=== PATIENT | male | born 1975 | race Two or more races ===

== ENCOUNTER 2016-12-30 20:21 | Inpatient (IN) | payer OTHER ==
[2016-12-30 20:42] LABS: VENOUS BASE EXCESS -1.5 (-2.0-2.0); VENOUS O2 SATURATION 82.1 % (60.0-80.0); VENOUS PARTIAL PRESSURE CO2 43.5 mmHg (38.0-50.0); VENOUS PARTIAL PRESSURE O2 50.4 mmHg (30.0-50.0); VENOUS STANDARD HCO3 22.9 MEQ/L; VENOUS TOTAL CO2 25.4 MEQ/L (24.0-28.0)
[2016-12-30] MEDS ORDERED: NS 1,000 ML IV ONE (20:45)
[2016-12-30 20:47] LABS: BASO % 0.2 % (0.0-1.0); EOS # 0.1 K/mm3 (0.0-0.50); EOS % 0.9 % (0.0-3.0); LARGE UNSTAINED CELL # 0.1 K/mm3 (0.0-0.4); LARGE UNSTAINED CELL % 0.6 % (0.0-4.0); LYMPH # 0.7 K/mm3 (1.5-4.5); LYMPH % 8.1 % (24.0-44.0); MEAN CORPUSCULAR HEMOGLOBIN 31.1 pg (27.0-33.0); MEAN CORPUSCULAR HGB CONC 33.7 g/dl (32.0-36.5); MEAN CORPUSCULAR VOLUME 92.3 fl (80.0-96.0); MONO # 0.3 K/mm3 (0.0-0.8); MONO % 3.8 % (0.0-5.0); NEUTROPHILS # 7.2 K/mm3 (1.8-7.7); NEUTROPHILS % 86.3 % (36.0-66.0); PLATELET COUNT, AUTOMATED 256 k/mm3 (150-450); RED CELL DISTRIBUTION WIDTH 12.3 % (11.5-14.5); WHITE BLOOD COUNT 8.3 K/mm3 (4.0-10.0)
[2016-12-30 21:04] LABS: OSMOLALITY SERUM 306 MOSM/KG (275-295)
[2016-12-30 21:08] LABS: METHADONE URINE NEGATIVE (NEGATIVE)
[2016-12-30 21:29] LABS: ALBUMIN 4.3 GM/DL (3.2-5.2); ALBUMIN/GLOBULIN RATIO 1.19 (1.00-1.93); ALKALINE PHOSPHATASE 90 U/L (45-117); ALT/SGPT 39 U/L (12-78); ANION GAP 7 MEQ/L (8-16); AST/SGOT 52 U/L (15-37); BILIRUBIN,DIRECT 0.2 MG/DL (0.0-0.2); BILIRUBIN,TOTAL 0.9 MG/DL (0.2-1.0); BLOOD UREA NITROGEN 20 MG/DL (7-18); CALCIUM LEVEL 9.2 MG/DL (8.5-10.1); CARBON DIOXIDE LEVEL 26 MEQ/L (21-32); CHLORIDE LEVEL 107 MEQ/L (98-107); CREATININE FOR GFR 1.84 MG/DL (0.70-1.30); GLOMERULAR FILTRATION RATE 43.8 (>60); GLUCOSE, FASTING 179 MG/DL (70-105); POTASSIUM SERUM 4.3 MEQ/L (3.5-5.1); SODIUM LEVEL 140 MEQ/L (136-145); TOTAL PROTEIN 7.9 GM/DL (6.4-8.2)
[2016-12-30] MEDS ORDERED: LIDOCAINE 1% MDV 20ML VIAL As Ordered ONE (23:58)
[2016-12-31] VITALS (28 sets, daily range): BP systolic 111–161; BP diastolic 63–98
[2016-12-31] MEDS ORDERED: MIDAZOLAM HCL 50 MG in D5W 40 ML IV SCH (01:00)
[2016-12-31] MEDS ORDERED: MIDAZOLAM INJ 5 MG/ML VIAL (J2250) As Ordered ONE (01:11)
[2016-12-31] MEDS ORDERED: MIDAZOLAM INJ 5 MG/ML VIAL (J2250) IV ONE ×2 (01:15)
[2016-12-31] MEDS ORDERED: NS 1,000 ML IV ONE ×2 (02:00→09:00)
[2016-12-31] MEDS ORDERED: REFRIGERATOR IV KEYS XX PRN ×2 (02:00→04:00)
[2016-12-31] MEDS ORDERED: MIDAZOLAM HCL 100 MG in D5W 80 ML IV SCH ×2 (02:00→06:00)
[2016-12-31 02:14] LABS: ABG BASE EXCESS -2.8 (-2.0-2.0); ABG PARTIAL PRESSURE CO2 38.7 mmHg (35.0-45.0); ABG PARTIAL PRESSURE O2 147.7 mmHg (75.0-100.0); ABG STANDARD HCO3 22.1 MEQ/L (22.0-26.0); ABG TOTAL CO2 23.2 MEQ/L (22.0-29.0); ABG pH (ARTERIAL) 7.373 UNITS (7.350-7.450)
[2016-12-31] MEDS ORDERED: VECURONIUM BROMIDE 10 MG VIAL IV ONE ×2 (02:15)
[2016-12-31] MEDS ORDERED: MORPHINE 2 MG/ML 1ML SYRINGE IV PRN (04:00)
[2016-12-31] MEDS: D5W/0.9% SODIUM CHLORIDE 1,000 ML IV SCH ×3 (04:43→20:57)
[2016-12-31] MEDS ORDERED: VECURONIUM BROMIDE 50 MG in D5W 50 ML IV SCH (05:00)
[2016-12-31] MEDS: HEPARIN SOD (PORCINE) 5000 UNITS/ML VIAL SC SCH ×3 (05:27→20:55)
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
[2016-12-31] MEDS ORDERED: VECURONIUM BROMIDE 10 MG VIAL ONE (05:33)
[2016-12-31] MEDS ORDERED: ETOMIDATE INJ 20MG/10ML VIAL ONE (05:33)
[2016-12-31] MEDS ORDERED: SUCCINYLCHOLINE 100 MG/5 ML SYRINGE (J0330) ONE (05:33)
--- NOTE | 2016-12-31 07:25 | ECGEPIP ---
Stationary ECG Study [facility] - ED Test Date: 2016-12-30 Pat Name: CORRINE MARTIN Department: Room: [place] [address] Gender: M Drafter Chief Design: : 1975 Requested By: ANDIE PLEITEZ Order Number: [id number] Reading MD: Omaira Schofield Measurements Intervals [place] Rate: 105 P: 58 DC: 127 QRS: 53 QRSD: 73 T: 26 QT: 319 QTc: 422 Interpretive Statements SINUS TACHYCARDIA ABNORMAL RHYTHM ECG NSTTW ABNORMALITY NO PRIOR FOR COMPARISON Electronically Signed On 12-31-2016 7:25:02 EDT by Omaira Schofield
--- NOTE | 2016-12-31 07:25 | REP ---
Portable chest, 12/31/2016, 06/1945 a, single AP view the patient supine for ET tube placement: The tip of the endotracheal tube is at the level of the tito and I cannot determine with certainty whether it is selectively within the right or left main stem bronchi. Cardiac silhouette is shifted to the left. There is opacification of the visualized left lung compatible with left lung atelectasis. Right lung is clear. There is a nasogastric tube terminates satisfactorily in the abdominal left upper quadrant. Signed by Chidi Mg MD 12/31/2016 07:16 A
--- NOTE | 2016-12-31 07:28 | REP ---
Follow-up portable chest, 12/31/2016, 01:50 a.m., single AP view the patient supine: Comparison is a study performed 01:40 a.m. earlier today. The tito is better visualized on the current study. The endotracheal tube is just above the tito. Low. The cardiac silhouette is no longer shifted to the left in the visualized left lung field has improved with only minor atelectasis visible at this time. Right lung remains clear. Cardiac size is normal. The vladislav, mediastinum, and bony thorax are otherwise unremarkable with exception of a possible fracture along the medial cortex of the right humeral head, acute versus chronic. There are no remote comparisons. The nasogastric tube is again identified terminates satisfactorily in the abdominal left upper quadrant. Signed by Chidi Mg MD 12/31/2016 07:19 A
[2016-12-31 08:05] LABS: BASO % 0.3 % (0.0-1.0); EOS % 0.4 % (0.0-3.0); LARGE UNSTAINED CELL # 0.1 K/mm3 (0.0-0.4); LARGE UNSTAINED CELL % 2.2 % (0.0-4.0); LYMPH # 1.2 K/mm3 (1.5-4.5); LYMPH % 19.1 % (24.0-44.0); MEAN CORPUSCULAR HGB CONC 33.5 g/dl (32.0-36.5); MEAN CORPUSCULAR VOLUME 92.5 fl (80.0-96.0); MONO # 0.5 K/mm3 (0.0-0.8); MONO % 8.7 % (0.0-5.0); NEUTROPHILS # 3.8 K/mm3 (1.8-7.7); NEUTROPHILS % 69.2 % (36.0-66.0); PLATELET COUNT, AUTOMATED 202 k/mm3 (150-450); RED CELL DISTRIBUTION WIDTH 12.4 % (11.5-14.5); WHITE BLOOD COUNT 5.5 K/mm3 (4.0-10.0)
[2016-12-31] MEDS: CHLORHEXIDINE GLUCONATE 0.12 % 15ML UDC (PERIDEX ORAL RINSE) MT SCH ×2 (08:07→20:55)
[2016-12-31] MEDS: PANTOPRAZOLE 40MG INJ (PROTONIX) (C9113) IV SCH (08:07)
[2016-12-31] MEDS: IPRATROPIUM 0.5MG/ALBUTEROL 2.5MG INH SOL UD 3ML (DUONEB)(J7620) NEB SCH ×4 (08:11→19:33)
[2016-12-31 08:30] LABS: ALBUMIN 3.5 GM/DL (3.2-5.2); ALBUMIN/GLOBULIN RATIO 1.06 (1.00-1.93); ALKALINE PHOSPHATASE 67 U/L (45-117); ALT/SGPT 31 U/L (12-78); ANION GAP 9 MEQ/L (8-16); AST/SGOT 44 U/L (15-37); BILIRUBIN,DIRECT 0.2 MG/DL (0.0-0.2); BILIRUBIN,TOTAL 0.7 MG/DL (0.2-1.0); BLOOD UREA NITROGEN 15 MG/DL (7-18); CALCIUM LEVEL 8.2 MG/DL (8.5-10.1); CARBON DIOXIDE LEVEL 23 MEQ/L (21-32); CHLORIDE LEVEL 113 MEQ/L (98-107); CREATININE FOR GFR 1.23 MG/DL (0.70-1.30); GLOMERULAR FILTRATION RATE > 60.0 (>60); GLUCOSE, FASTING 120 MG/DL (70-105); PHOSPHORUS LEVEL 1.7 MG/DL (2.5-4.9); SODIUM LEVEL 145 MEQ/L (136-145); TOTAL PROTEIN 6.8 GM/DL (6.4-8.2)
[2016-12-31 08:52] LABS: ABG HCO3 22.4 MEQ/L (22.0-26.0); ABG PARTIAL PRESSURE CO2 41.2 mmHg (35.0-45.0); ABG STANDARD HCO3 21.6 MEQ/L (22.0-26.0); ABG TOTAL CO2 23.7 MEQ/L (22.0-29.0); ABG pH (ARTERIAL) 7.353 UNITS (7.350-7.450)
[2016-12-31 08:56] LABS: ABG PARTIAL PRESSURE O2 47.5 mmHg (75.0-100.0)
[2016-12-31] MEDS: MIDAZOLAM HCL 250 MG in D5W 200 ML IV SCH ×2 (11:31→23:46)
[2016-12-31] MEDS: VECURONIUM BROMIDE 50 MG in D5W 50 ML IV SCH ×2 (11:32→20:57)
--- NOTE | 2016-12-31 12:28 | REP ---
Portable chest, single AP view, the patient sitting, 12/31/2016, 12:06 p.m.: Comparison is a portable chest performed at 1:58 AM earlier today. There is a right subclavian central venous catheter with the tip superimposed over the tito. There is no pneumothorax or pleural fluid collection. Lung butler are clear. Cardiac size normal. There is an endotracheal tube with the tip in satisfactory location at the level of the aortic arch. There is a nasogastric tube with the tip in satisfactory location in the abdominal left upper quadrant. Signed by hCidi Mg MD 12/31/2016 12:20 P
--- NOTE | 2016-12-31 12:30 | REP ---
Right shoulder single AP view: Comparison study is performed at 01:58 a.m. earlier today. There is a faintly visible defect in the medial cortex of the humeral head, identified to better advantage on the comparison study, compatible with a humeral head cortical fracture. 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 Mineralization is normal. There is no dislocation. Signed by Chidi Mg MD 12/31/2016 12:22 P
--- NOTE | 2016-12-31 12:46 | RO ---
DATE OF PROCEDURE: 12/31/2016 Time of procedure: 10:10 a.m. PREOPERATIVE DIAGNOSIS: Hemodynamic monitoring, poor IV access. POSTOPERATIVE DIAGNOSIS: Hemodynamic monitoring, poor IV access. PROCEDURE: Central venous catheter placement in the right subclavian vein. ATTENDING DOCTOR: Gonzalo Baltazar DO RESIDENT DOCTOR: Emmanuelle Sainz DO ANESTHESIA: DESCRIPTION OF PROCEDURE: A time out was completed verifying the correct procedure, said procedure and special equipment that was available. The patient was faced in dependent position, appropriate for central line placement based on vein to be cannulated. The patient's right shoulder was prepped and draped in a sterile fashion. 1% lidocaine was used to anesthetize the shoulder skin area. A triple lumen catheter was introduced into the right subclavian vein, used in a Seldinger technique. The catheter was threaded smoothly over the Guidewire and appropriate blood return was obtained. Each lumen of the catheter was evaluated and flushed sterile saline. The catheter was then sutured in place to the skin and a sterile drape was applied. Perfusion to the extremity distal to the point of catheter insertion was checked and found to be adequate. Dr. Baltazar was present for the entire procedure. ESTIMATED BLOOD LOSS: Less than 10 mL. Patient tolerated the procedure well and there were no complications. Position of the Guidewire, position of the triple lumen catheter (TLC) was checked with a portable chest x-ray and was found to be in good position. [facility]
[2016-12-31] MEDS: MIDAZOLAM INJ 2 MG/2 ML VIAL (J2250) IV PRN ×3 (20:55→21:56)
[2017-01-01] VITALS (18 sets, daily range): BP systolic 111–150; BP diastolic 58–87; O2SAT 100
[2017-01-01] MEDS: HEPARIN SOD (PORCINE) 5000 UNITS/ML VIAL SC SCH ×3 (05:40→21:38)
[2017-01-01] MEDS: VECURONIUM BROMIDE 50 MG in D5W 50 ML IV SCH (05:40)
[2017-01-01 05:51] LABS: ABG BASE EXCESS -0.5 (-2.0-2.0); ABG HCO3 23.8 MEQ/L (22.0-26.0); ABG PARTIAL PRESSURE CO2 37.9 mmHg (35.0-45.0); ABG PARTIAL PRESSURE O2 113.4 mmHg (75.0-100.0); ABG TOTAL CO2 24.9 MEQ/L (22.0-29.0); ABG pH (ARTERIAL) 7.415 UNITS (7.350-7.450)
[2017-01-01 05:55] LABS: BASO % 0.1 % (0.0-1.0); EOS # 0.2 K/mm3 (0.0-0.50); EOS % 1.2 % (0.0-3.0); LARGE UNSTAINED CELL # 0.1 K/mm3 (0.0-0.4); LARGE UNSTAINED CELL % 0.5 % (0.0-4.0); LYMPH # 0.5 K/mm3 (1.5-4.5); LYMPH % 3.1 % (24.0-44.0); MEAN CORPUSCULAR HEMOGLOBIN 31.1 pg (27.0-33.0); MEAN CORPUSCULAR HGB CONC 33.5 g/dl (32.0-36.5); MEAN CORPUSCULAR VOLUME 92.8 fl (80.0-96.0); MONO # 0.4 K/mm3 (0.0-0.8); MONO % 3.1 % (0.0-5.0); NEUTROPHILS # 12.5 K/mm3 (1.8-7.7); NEUTROPHILS % 91.9 % (36.0-66.0); PLATELET COUNT, AUTOMATED 182 k/mm3 (150-450); RED CELL DISTRIBUTION WIDTH 12.5 % (11.5-14.5); WHITE BLOOD COUNT 13.6 K/mm3 (4.0-10.0)
[2017-01-01] MEDS: MIDAZOLAM INJ 2 MG/2 ML VIAL (J2250) IV PRN (05:57)
[2017-01-01 06:22] LABS: ALKALINE PHOSPHATASE 62 U/L (45-117); ALT/SGPT 25 U/L (12-78); ANION GAP 7 MEQ/L (8-16); AST/SGOT 28 U/L (15-37); BILIRUBIN,TOTAL 0.8 MG/DL (0.2-1.0); BLOOD UREA NITROGEN 6 MG/DL (7-18); CARBON DIOXIDE LEVEL 26 MEQ/L (21-32); CHLORIDE LEVEL 112 MEQ/L (98-107); CHOLESTEROL LEVEL 94 MG/DL (< 200); CREATININE FOR GFR 1.01 MG/DL (0.70-1.30); GLOMERULAR FILTRATION RATE > 60.0 (>60); GLUCOSE, FASTING 156 MG/DL (70-105); PHOSPHORUS LEVEL 2.3 MG/DL (2.5-4.9); POTASSIUM SERUM 3.5 MEQ/L (3.5-5.1); SODIUM LEVEL 145 MEQ/L (136-145); TRIGLYCERIDES LEVEL 61 MG/DL (<150)
--- NOTE | 2017-01-01 07:51 | REP ---
Portable chest, 01/01/2017, 07:08 a.m., single AP semi upright view: Comparison 12/31/2016. The endotracheal tube tip is at the level of the aortic arch, above the tito, in satisfactory location. There is a nasogastric tube terminating satisfactorily in the abdominal left upper quadrant, unchanged. There is a right subclavian central venous catheter with the tip superimposed over the tito, unchanged. The lung butler are clear. Cardiac size is normal. Signed by Chidi Mg MD 01/01/2017 07:42 A
[2017-01-01] MEDS: IPRATROPIUM 0.5MG/ALBUTEROL 2.5MG INH SOL UD 3ML (DUONEB)(J7620) NEB SCH ×4 (08:03→19:32)
[2017-01-01] MEDS: CHLORHEXIDINE GLUCONATE 0.12 % 15ML UDC (PERIDEX ORAL RINSE) MT SCH (08:41)
[2017-01-01] MEDS: D5W/0.9% SODIUM CHLORIDE 1,000 ML IV SCH ×3 (08:41→15:53)
[2017-01-01] MEDS: PANTOPRAZOLE 40MG INJ (PROTONIX) (C9113) IV SCH (08:41)
[2017-01-01] MEDS ORDERED: PROPOFOL 1,000 MG/100 ML VIAL As Ordered ONE (09:26)
--- NOTE | 2017-01-01 11:28 | CCN ---
DATE: 01/01/2017 CRITICAL CARE NOTE The patient is seen in the intensive care unit intubated, mechanically ventilated, critically ill. Over the past 24 hours with hydration, his renal function and CPK have improved. He remains paralyzed this morning and sedated. At bedside, his temperature is 97, pulse rate 78, respirations 17/16 delivered. Blood pressure 128/67. Input and output for the past 24 hours 3060 in and 3000 out. HEENT: His pupils are small but do react to light. Endotracheal tube and orogastric tubes are in good position. Neck is supple, coley. Heart sounds are regular. Breath sounds coarse diminished. Abdomen is soft. Bowel sounds right lower quadrant. Extremities are cool. Pulses are palpable. DIAGNOSTIC STUDIES White cell count is up slightly at 13.6, hemoglobin 11.7, hematocrit 34.8, platelet count 182,000. Differential white cell count shows 91.9 neutrophils. His sodium is 45, potassium 3.5, chloride 112, CO2 26, BUN 6, creatinine 1.1, glucose is 156, calcium is 8, phosphorus 2.3, CPK is down to 943. Arterial blood gases show pH 7.45, pCO2 37, pO2 113. Chest x-ray is showing no known infiltrates. The primary problem requiring critical attention is drug intoxication. The patient has been stabilized for the past 24 hours and is showing no new toxidrome signs or symptoms. Acute respiratory failure secondary to the above. We will withdraw the paralytics at this point. His CPK is coming down and begin to reduce sedation in hopes of reestablishing spontaneous respiratory efforts and weaning from mechanical ventilation. Rhabdomyolysis. The patient's CPK is improving. Acute kidney injury. Renal indices are improved. Deep vein thrombosis (DVT) and ulcer prophylaxis are in place. 47 minutes was spent in provision of bedside critical care and coordination.
[2017-01-01] MEDS: LIDOCAINE 5% (LIDODERM) PATCH TD SCH (16:57)
[2017-01-01] MEDS: **NOTE PATIENT COMMENT** MISC XX SCH (21:37)
[2017-01-01] MEDS ORDERED: MORPHINE 2 MG/ML 1ML SYRINGE IV PRN (22:15)
[2017-01-02] VITALS (12 sets, daily range): BP systolic 95–135; BP diastolic 50–77
[2017-01-02] MEDS: D5W/0.9% SODIUM CHLORIDE 1,000 ML IV SCH (06:36)
[2017-01-02] MEDS: HEPARIN SOD (PORCINE) 5000 UNITS/ML VIAL SC SCH ×3 (06:36→22:17)
[2017-01-02 07:02] LABS: BASO % 0.1 % (0.0-1.0); EOS % 0.3 % (0.0-3.0); LARGE UNSTAINED CELL # 0.1 K/mm3 (0.0-0.4); LARGE UNSTAINED CELL % 0.7 % (0.0-4.0); LYMPH # 0.8 K/mm3 (1.5-4.5); LYMPH % 5.8 % (24.0-44.0); MEAN CORPUSCULAR HEMOGLOBIN 31.4 pg (27.0-33.0); MEAN CORPUSCULAR HGB CONC 33.9 g/dl (32.0-36.5); MEAN CORPUSCULAR VOLUME 92.7 fl (80.0-96.0); MONO # 0.5 K/mm3 (0.0-0.8); MONO % 4.4 % (0.0-5.0); NEUTROPHILS # 10.4 K/mm3 (1.8-7.7); NEUTROPHILS % 88.7 % (36.0-66.0); PLATELET COUNT, AUTOMATED 173 k/mm3 (150-450); RED CELL DISTRIBUTION WIDTH 12.3 % (11.5-14.5); WHITE BLOOD COUNT 11.8 K/mm3 (4.0-10.0)
[2017-01-02 07:23] LABS: ALBUMIN 2.6 GM/DL (3.2-5.2); ALBUMIN/GLOBULIN RATIO 0.74 (1.00-1.93); ALKALINE PHOSPHATASE 60 U/L (45-117); ALT/SGPT 26 U/L (12-78); ANION GAP 7 MEQ/L (8-16); AST/SGOT 36 U/L (15-37); BILIRUBIN,TOTAL 1.2 MG/DL (0.2-1.0); BLOOD UREA NITROGEN 6 MG/DL (7-18); CALCIUM LEVEL 8.1 MG/DL (8.5-10.1); CARBON DIOXIDE LEVEL 26 MEQ/L (21-32); CHLORIDE LEVEL 113 MEQ/L (98-107); CHOLESTEROL LEVEL 76 MG/DL (< 200); CREATININE FOR GFR 1.14 MG/DL (0.70-1.30); GLOMERULAR FILTRATION RATE > 60.0 (>60); GLUCOSE, FASTING 109 MG/DL (70-105); PHOSPHORUS LEVEL 1.6 MG/DL (2.5-4.9); POTASSIUM SERUM 3.2 MEQ/L (3.5-5.1); SODIUM LEVEL 146 MEQ/L (136-145); TOTAL PROTEIN 6.1 GM/DL (6.4-8.2); TRIGLYCERIDES LEVEL 63 MG/DL (<150)
--- NOTE | 2017-01-02 07:34 | REP ---
Portable chest, single AP view, the patient semi upright, 07:08 a.m.: Comparison is 01/01/2017. The endotracheal tube and nasogastric tube have been removed. There is an infiltrate inferiorly in the right lung as an interval change. Right hemidiaphragm is elevated. This is unchanged. Left lung is clear. Cardiac size is normal. The right subclavian central venous catheter is unchanged. Signed by Chidi Mg MD 01/02/2017 07:26 A
[2017-01-02] MEDS: IPRATROPIUM 0.5MG/ALBUTEROL 2.5MG INH SOL UD 3ML (DUONEB)(J7620) NEB SCH (07:58)
[2017-01-02] MEDS: PANTOPRAZOLE 40MG INJ (PROTONIX) (C9113) IV SCH (08:28)
[2017-01-02] MEDS: LIDOCAINE 5% (LIDODERM) PATCH TD SCH (08:29)
[2017-01-02] MEDS ORDERED: POTASSIUM CHLORIDE 10 MEQ SR TABLET PO SCH (09:00)
[2017-01-02 09:12] LABS: MAGNESIUM LEVEL 1.8 MG/DL (1.8-2.4)
[2017-01-02] MEDS: D5W/0.45% SODIUM CHLORIDE 1,000 ML IV SCH (09:21)
[2017-01-02] MEDS ORDERED: POTASSIUM PHOSPHATE INJ 30 MMOL in D5W 500 ML IV ONE (11:00)
[2017-01-02] MEDS: ACETAMINOPHEN TAB 650MG DOSE (2X325MG) PO PRN (12:35)
[2017-01-02] MEDS: **NOTE PATIENT COMMENT** MISC XX SCH (22:14)
[2017-01-03] VITALS (7 sets, daily range): BP systolic 99–142; BP diastolic 58–77
[2017-01-03] MEDS: D5W/0.45% SODIUM CHLORIDE 1,000 ML IV SCH ×2 (03:57→16:13)
[2017-01-03] MEDS ORDERED: SODIUM CHLORIDE 0.9% INJ 10 ML SYR IV PRN (04:15)
[2017-01-03] MEDS: SODIUM CHLORIDE 0.9% INJ 10 ML SYR IV SCH ×3 (05:32→21:09)
[2017-01-03] MEDS: HEPARIN SOD (PORCINE) 5000 UNITS/ML VIAL SC SCH ×3 (05:32→21:09)
[2017-01-03 06:40] LABS: BASO # 0.1 K/mm3 (0.0-0.2); EOS # 0.2 K/mm3 (0.0-0.50); EOS % 2.1 % (0.0-3.0); LARGE UNSTAINED CELL # 0.2 K/mm3 (0.0-0.4); LARGE UNSTAINED CELL % 2.7 % (0.0-4.0); LYMPH # 1.3 K/mm3 (1.5-4.5); LYMPH % 17.3 % (24.0-44.0); MEAN CORPUSCULAR HEMOGLOBIN 31.4 pg (27.0-33.0); MEAN CORPUSCULAR HGB CONC 33.8 g/dl (32.0-36.5); MEAN CORPUSCULAR VOLUME 92.8 fl (80.0-96.0); MONO # 0.4 K/mm3 (0.0-0.8); MONO % 5.8 % (0.0-5.0); NEUTROPHILS # 5.2 K/mm3 (1.8-7.7); PLATELET COUNT, AUTOMATED 139 k/mm3 (150-450); RED CELL DISTRIBUTION WIDTH 11.7 % (11.5-14.5); WHITE BLOOD COUNT 7.4 K/mm3 (4.0-10.0)
[2017-01-03 07:04] LABS: ALBUMIN 2.7 GM/DL (3.2-5.2); ALKALINE PHOSPHATASE 69 U/L (45-117); ALT/SGPT 34 U/L (12-78); ANION GAP 7 MEQ/L (8-16); AST/SGOT 43 U/L (15-37); BILIRUBIN,TOTAL 1.4 MG/DL (0.2-1.0); BLOOD UREA NITROGEN 5 MG/DL (7-18); CALCIUM LEVEL 8.2 MG/DL (8.5-10.1); CARBON DIOXIDE LEVEL 27 MEQ/L (21-32); CHLORIDE LEVEL 111 MEQ/L (98-107); CHOLESTEROL LEVEL 84 MG/DL (< 200); CREATININE FOR GFR 1.32 MG/DL (0.70-1.30); GLOMERULAR FILTRATION RATE > 60.0 (>60); GLUCOSE, FASTING 89 MG/DL (70-105); PHOSPHORUS LEVEL 2.3 MG/DL (2.5-4.9); POTASSIUM SERUM 3.1 MEQ/L (3.5-5.1); SODIUM LEVEL 145 MEQ/L (136-145); TOTAL PROTEIN 5.7 GM/DL (6.4-8.2); TRIGLYCERIDES LEVEL 128 MG/DL (<150)
[2017-01-03] MEDS ORDERED: POTASSIUM CHLORIDE 10 MEQ SR TABLET PO ONE (08:00)
[2017-01-03] MEDS ORDERED: NS 500 ML IV ONE (08:15)
[2017-01-03 08:35] LABS: BILIRUBIN,DIRECT 0.5 MG/DL (0.0-0.2)
[2017-01-03] MEDS: LIDOCAINE 5% (LIDODERM) PATCH TD SCH (09:07)
[2017-01-03] MEDS: PANTOPRAZOLE 40MG INJ (PROTONIX) (C9113) IV SCH (09:07)
[2017-01-03] MEDS ORDERED: POTASSIUM PHOSPHATE INJ 30 MMOL in D5W 500 ML IV ONE (10:00)
--- NOTE | 2017-01-03 15:20 | REP ---
Right shoulder three views: Comparison is 12/31/2016. There is a defect in the inferomedial cortex of the humeral head as previously, possibly a fracture. This could be a reverse Hill-Sachs lesion. Consider CT for confirmation. There is advanced osteoarthritis of the acromioclavicular joint with inferior spurring, unchanged. Mineralization is normal. No calcifications. No fracture or dislocation otherwise. Impression: Questionable fracture of the humeral head inferomedially. Consider CT for confirmation. Signed by Chidi Mg MD 01/03/2017 03:11 P
--- NOTE | 2017-01-03 19:20 | REPUSA ---
CT of the right shoulder without contrast Clinical statement: Pain, suspected fracture. Technique: Multiple axial CT images were obtained with 5 mm cuts through the right shoulder without a dministration of contrast. 3D, coronal and sagittal reconstructions were also obtained. No comparison is available. Findings: The osseous structures do not demonstrate any fractures or dislocations. The superficial so ft tissues are unremarkable. The joint spaces are well-maintained. Impression: Unremarkable CT examination of the right shoulder. No fracture is identified at this time .
[2017-01-03] MEDS: **NOTE PATIENT COMMENT** MISC XX SCH (21:10)
[2017-01-04] VITALS (7 sets, daily range): BP systolic 119–180; BP diastolic 60–91
[2017-01-04] MEDS: ACETAMINOPHEN TAB 650MG DOSE (2X325MG) PO PRN (01:01)
[2017-01-04] MEDS: D5W/0.45% SODIUM CHLORIDE 1,000 ML IV SCH ×3 (01:48→21:18)
[2017-01-04] MEDS ORDERED: MOM 30ML SUSPENSION UDC PO PRN (04:00)
[2017-01-04 04:22] LABS: BASO % 0.6 % (0.0-1.0); EOS # 0.1 K/mm3 (0.0-0.50); EOS % 3.2 % (0.0-3.0); LARGE UNSTAINED CELL # 0.1 K/mm3 (0.0-0.4); LARGE UNSTAINED CELL % 2.6 % (0.0-4.0); LYMPH # 1.2 K/mm3 (1.5-4.5); LYMPH % 27.4 % (24.0-44.0); MEAN CORPUSCULAR HEMOGLOBIN 31.1 pg (27.0-33.0); MEAN CORPUSCULAR HGB CONC 33.6 g/dl (32.0-36.5); MEAN CORPUSCULAR VOLUME 92.6 fl (80.0-96.0); MONO # 0.3 K/mm3 (0.0-0.8); MONO % 5.8 % (0.0-5.0); NEUTROPHILS # 2.7 K/mm3 (1.8-7.7); NEUTROPHILS % 60.4 % (36.0-66.0); PLATELET COUNT, AUTOMATED 195 k/mm3 (150-450); RED CELL DISTRIBUTION WIDTH 11.6 % (11.5-14.5); WHITE BLOOD COUNT 4.5 K/mm3 (4.0-10.0)
[2017-01-04 04:41] LABS: ALBUMIN 2.5 GM/DL (3.2-5.2); ALBUMIN/GLOBULIN RATIO 0.64 (1.00-1.93); ALKALINE PHOSPHATASE 65 U/L (45-117); ALT/SGPT 36 U/L (12-78); ANION GAP 7 MEQ/L (8-16); AST/SGOT 42 U/L (15-37); BLOOD UREA NITROGEN 6 MG/DL (7-18); CALCIUM LEVEL 8.1 MG/DL (8.5-10.1); CARBON DIOXIDE LEVEL 27 MEQ/L (21-32); CHLORIDE LEVEL 112 MEQ/L (98-107); CHOLESTEROL LEVEL 87 MG/DL (< 200); CREATININE FOR GFR 1.36 MG/DL (0.70-1.30); GLOMERULAR FILTRATION RATE > 60.0 (>60); GLUCOSE, FASTING 121 MG/DL (70-105); SODIUM LEVEL 146 MEQ/L (136-145); TOTAL PROTEIN 6.4 GM/DL (6.4-8.2); TRIGLYCERIDES LEVEL 141 MG/DL (<150)
[2017-01-04 05:07] LABS: POTASSIUM SERUM 2.8 MEQ/L (3.5-5.1)
[2017-01-04 05:08] LABS: BILIRUBIN,TOTAL 0.6 MG/DL (0.2-1.0); PHOSPHORUS LEVEL 3.4 MG/DL (2.5-4.9)
[2017-01-04] MEDS ORDERED: POTASSIUM CHLORIDE 10 MEQ SR TABLET PO ONE (05:15)
[2017-01-04] MEDS: SODIUM CHLORIDE 0.9% INJ 10 ML SYR IV SCH ×3 (06:00→21:18)
[2017-01-04] MEDS: HEPARIN SOD (PORCINE) 5000 UNITS/ML VIAL SC SCH ×3 (06:22→21:17)
[2017-01-04] MEDS: POTASSIUM CHLORIDE 10 MEQ SR TABLET PO SCH ×2 (09:10→21:17)
[2017-01-04] MEDS: PANTOPRAZOLE 40MG INJ (PROTONIX) (C9113) IV SCH (09:10)
[2017-01-04] MEDS: LIDOCAINE 5% (LIDODERM) PATCH TD SCH (09:10)
[2017-01-04] MEDS: **NOTE PATIENT COMMENT** MISC XX SCH (21:18)
[2017-01-05] VITALS (8 sets, daily range): BP systolic 129–170; BP diastolic 74–106; PULSE 100
[2017-01-05] MEDS: SODIUM CHLORIDE 0.9% INJ 10 ML SYR IV SCH (06:13)
[2017-01-05] MEDS: HEPARIN SOD (PORCINE) 5000 UNITS/ML VIAL SC SCH ×4 (06:13→20:18)
[2017-01-05] MEDS: ACETAMINOPHEN TAB 650MG DOSE (2X325MG) PO PRN ×2 (06:16→15:19)
[2017-01-05] MEDS: D5W/0.45% SODIUM CHLORIDE 1,000 ML IV SCH ×2 (06:19→16:07)
[2017-01-05 06:41] LABS: BASO % 0.3 % (0.0-1.0); EOS # 0.1 K/mm3 (0.0-0.50); EOS % 1.6 % (0.0-3.0); LARGE UNSTAINED CELL # 0.1 K/mm3 (0.0-0.4); LARGE UNSTAINED CELL % 1.8 % (0.0-4.0); LYMPH # 1.2 K/mm3 (1.5-4.5); LYMPH % 22.2 % (24.0-44.0); MEAN CORPUSCULAR HEMOGLOBIN 30.9 pg (27.0-33.0); MEAN CORPUSCULAR HGB CONC 33.8 g/dl (32.0-36.5); MEAN CORPUSCULAR VOLUME 91.3 fl (80.0-96.0); MONO # 0.4 K/mm3 (0.0-0.8); MONO % 7.4 % (0.0-5.0); NEUTROPHILS # 3.2 K/mm3 (1.8-7.7); NEUTROPHILS % 66.7 % (36.0-66.0); PLATELET COUNT, AUTOMATED 235 k/mm3 (150-450); RED CELL DISTRIBUTION WIDTH 12.1 % (11.5-14.5); WHITE BLOOD COUNT 4.8 K/mm3 (4.0-10.0)
[2017-01-05 07:13] LABS: ALBUMIN 3.2 GM/DL (3.2-5.2); ALBUMIN/GLOBULIN RATIO 0.86 (1.00-1.93); ALKALINE PHOSPHATASE 77 U/L (45-117); ALT/SGPT 46 U/L (12-78); ANION GAP 10 MEQ/L (8-16); AST/SGOT 54 U/L (15-37); BILIRUBIN,TOTAL 0.7 MG/DL (0.2-1.0); BLOOD UREA NITROGEN 6 MG/DL (7-18); CALCIUM LEVEL 8.5 MG/DL (8.5-10.1); CARBON DIOXIDE LEVEL 26 MEQ/L (21-32); CHLORIDE LEVEL 107 MEQ/L (98-107); CHOLESTEROL LEVEL 124 MG/DL (< 200); CREATININE FOR GFR 1.26 MG/DL (0.70-1.30); GLOMERULAR FILTRATION RATE > 60.0 (>60); GLUCOSE, FASTING 123 MG/DL (70-105); PHOSPHORUS LEVEL 3.1 MG/DL (2.5-4.9); POTASSIUM SERUM 3.2 MEQ/L (3.5-5.1); SODIUM LEVEL 143 MEQ/L (136-145); TOTAL PROTEIN 6.9 GM/DL (6.4-8.2); TRIGLYCERIDES LEVEL 143 MG/DL (<150)
[2017-01-05] MEDS: LORazepam 2 MG/ML VIAL (J2060) IV PRN ×2 (09:14→22:33)
[2017-01-05] MEDS: POTASSIUM CHLORIDE 10 MEQ SR TABLET PO SCH ×2 (09:14→20:18)
[2017-01-05] MEDS: PANTOPRAZOLE 40MG INJ (PROTONIX) (C9113) IV SCH (09:14)
[2017-01-05] MEDS: LIDOCAINE 5% (LIDODERM) PATCH TD SCH (09:15)
[2017-01-05] MEDS: HALOPERIDOL 5 MG/ML VIAL (J1630) IV PRN ×2 (09:31→20:18)
--- NOTE | 2017-01-05 13:59 | REP ---
PORTABLE CHEST: AP portable view of the chest is performed and compared to prior study of 01/02/2017. There is no acute infiltrate. There is left ventricular prominence. Right subclavian central venous catheter is seen, the tip is not well visualized. IMPRESSION: No acute infiltrate. Signed by Chidi Baugh MD 01/05/2017 03:21 P
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
[2017-01-05] MEDS: **NOTE PATIENT COMMENT** MISC XX SCH (20:19)
[2017-01-06] MEDS: D5W/0.45% SODIUM CHLORIDE 1,000 ML IV SCH (02:05)
[2017-01-06 04:45] VITALS: BP 153/88
[2017-01-06] MEDS: HEPARIN SOD (PORCINE) 5000 UNITS/ML VIAL SC SCH ×3 (06:41→21:07)
[2017-01-06 07:57] VITALS: BP 133/82
[2017-01-06 08:10] LABS: BASO % 0.4 % (0.0-1.0); EOS # 0.2 K/mm3 (0.0-0.50); EOS % 4.5 % (0.0-3.0); LARGE UNSTAINED CELL # 0.1 K/mm3 (0.0-0.4); LARGE UNSTAINED CELL % 2.4 % (0.0-4.0); LYMPH # 1.3 K/mm3 (1.5-4.5); LYMPH % 24.3 % (24.0-44.0); MEAN CORPUSCULAR HEMOGLOBIN 30.5 pg (27.0-33.0); MEAN CORPUSCULAR HGB CONC 33.4 g/dl (32.0-36.5); MEAN CORPUSCULAR VOLUME 91.1 fl (80.0-96.0); MONO # 0.2 K/mm3 (0.0-0.8); MONO % 4.5 % (0.0-5.0); NEUTROPHILS # 3.2 K/mm3 (1.8-7.7); NEUTROPHILS % 63.9 % (36.0-66.0); PLATELET COUNT, AUTOMATED 230 k/mm3 (150-450); RED CELL DISTRIBUTION WIDTH 12.7 % (11.5-14.5)
[2017-01-06 08:34] LABS: ANION GAP 6 MEQ/L (8-16); BLOOD UREA NITROGEN 8 MG/DL (7-18); CALCIUM LEVEL 8.2 MG/DL (8.5-10.1); CARBON DIOXIDE LEVEL 27 MEQ/L (21-32); CHLORIDE LEVEL 106 MEQ/L (98-107); CREATININE FOR GFR 1.14 MG/DL (0.70-1.30); GLOMERULAR FILTRATION RATE > 60.0 (>60); GLUCOSE, FASTING 134 MG/DL (70-105); MAGNESIUM LEVEL 2.2 MG/DL (1.8-2.4); POTASSIUM SERUM 3.4 MEQ/L (3.5-5.1); SODIUM LEVEL 139 MEQ/L (136-145)
[2017-01-06] MEDS ORDERED: hydrOXYzine 25 MG TAB PO PRN (08:45)
--- NOTE | 2017-01-06 09:04 | IPN ---
DATE: 01/05/2017 Mr. Montoya is more confused today. He is suffering from hallucinations. He sees his mother. He is answering simple questions. He is not complaining of pain, chest pain, shortness of breath. He is not particularly hungry. Temperature 100.8, pulse 106, respiratory rate 20, blood pressure 140/106, 95% on room air. Input and output notable for a positive fluid balance of 2250. Weight is 190. He is not sure where he is. He is somewhat agitated. Mucous membranes are moist. Neck supple. Heart is distant sounding. Normal S1, S2. Not tachycardic. Breathing is symmetrical and rested. I:E ratio 1:3. No cough. No accessory muscle use. Speaking in complete sentences. Abdomen soft, doughy, nontender. White cell count 4.8, hemoglobin 11.3 and platelets of 235. Potassium is 3.2. LDH is 433. CK is 875. Synthetic cannabinoid screen was negative. ASSESSMENT: This is a 41-year-old who was admitted with acute intoxication and resulting respiratory failure with rhabdomyolysis. PLAN: 1. Metabolic encephalopathy. This likely is waxing and waning from his previous intoxication. The possibility of other infectious etiology should be ruled out based on his previous respiratory failure. Once his mental status is somewhat improved, we should pursue chest x-ray as he has had a low grade fever even though he does not have white cell count elevation. 2. The patient has rhabdomyolysis with resolved acute kidney injury. 3. The patient has deep vein thrombosis (DVT) prophylaxis.
[2017-01-06] MEDS: LIDOCAINE 5% (LIDODERM) PATCH TD SCH (09:21)
[2017-01-06] MEDS: PANTOPRAZOLE 40MG INJ (PROTONIX) (C9113) IV SCH (09:21)
[2017-01-06] MEDS: POTASSIUM CHLORIDE 10 MEQ SR TABLET PO SCH ×2 (09:21→21:06)
[2017-01-06] MEDS: risperiDONE 0.5 MG TAB PO SCH ×2 (10:14→21:06)
[2017-01-06 11:10] VITALS: BP 146/84
[2017-01-06] MEDS ORDERED: POTASSIUM CHLORIDE 10 MEQ SR TABLET PO ONE (12:00)
[2017-01-06 14:00] VITALS: BP 132/77
[2017-01-06] MEDS: **NOTE PATIENT COMMENT** MISC XX SCH (21:00)
[2017-01-06 23:18] VITALS: BP 135/95
[2017-01-06] MEDS: ACETAMINOPHEN TAB 650MG DOSE (2X325MG) PO PRN (23:23)
[2017-01-07] MEDS: HEPARIN SOD (PORCINE) 5000 UNITS/ML VIAL SC SCH (05:39)
[2017-01-07 05:40] VITALS: BP 124/64
[2017-01-07] MEDS ORDERED: PANTOPRAZOLE 40MG TAB (PROTONIX) PO SCH (09:00)
[2017-01-07] MEDS ORDERED: RISP0.2516 PO (10:28)
[2017-01-07] MEDS: POTASSIUM CHLORIDE 10 MEQ SR TABLET PO SCH (10:36)
[2017-01-07] MEDS: risperiDONE 0.5 MG TAB PO SCH (10:37)
[2017-01-07] MEDS: LIDOCAINE 5% (LIDODERM) PATCH TD SCH (10:37)
--- NOTE | 2017-01-07 10:54 | IPN ---
DATE OF SERVICE: 01/06/2017 The patient is awake, alert, appropriately interactive, pleasantly conversant. No complaints of pain, chest pain, shortness of breath. He is not hallucinating. Temperature 98.2, pulse 98, respiratory rate 18, blood pressure 146/84, 95% on room air. Input and output notable for a positive fluid balance of 625. Weight is 106.1 kg. He is awake, appropriately interactive, pleasantly conversant. Breathing is symmetrical and rested. Heart is in a regular rate and rhythm. Abdomen soft, doughy, nontender. Sodium is 139, potassium is 3.4. CK is 609, trending downward. White cell count 5, hemoglobin 10.6. My assessment is as follows: This is a 41-year-old who was admitted with acute intoxication and resulting respiratory failure and rhabdomyolysis. My plan is as follows: 1. Metabolic encephalopathy. This has been waxing and waning and appears to have improved. I have elected to start a small dose of twice daily risperdal as a trial. Will use atarax as needed for anxiety. Will monitor him clinically overnight. No further fevers. No evidence of infectious etiology. He likely can be discharged tomorrow. 2. The patient has rhabdomyolysis with resolved acute kidney injury. 3. The patient has appropriate deep vein thrombosis (DVT) prophylaxis. I did discuss this case by phone with the patient's mother with his permission.
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
[2017-01-14 00:09] LABS: RENIN LEVEL <0.167 ng/mL/hr (0.167-5.380)
== END 2017-01-07 15:00 | DRG 812 ==
LOC: M ED 20:21 → M ED INP 12-31 03:59 → M ICU 12-31 04:29 → M PCU 01-02 16:53 → M MSPAV 01-06 11:06
PROVIDERS: ADMIT Internal Medicine Pulmonary Disease; ATTEND Internal Medicine
PROC: 05HY33Z Insertion of Infusion Device into Upper Vein, Percutaneous Approach (ICD-10-PCS; principal; 2016-12-31)
PROC: 5A1945Z Respiratory Ventilation, 24-96 Consecutive Hours (ICD-10-PCS; 2016-12-31)
DX: T50.994A Poisoning by other drugs, medicaments and biological substances, undetermined, initial encounter (principal); J96.00 Acute respiratory failure, unspecified whether with hypoxia or hypercapnia; G93.41 Metabolic encephalopathy; N17.9 Acute kidney failure, unspecified; M62.82 Rhabdomyolysis